=== PATIENT | male | born 1935 | race Caucasian/White ===

== ENCOUNTER 2021-06-14 11:52 | Emergency (ER) | payer BC ==
[2021-06-15 13:08] LABS: SARS-CoV-2 NAA Not Detected (Not Detected)
== END 2021-06-14 12:28 | disposition home or self-care (01) ==
LOC: JVIRT 11:52
DX: Z20.822 Contact with and (suspected) exposure to COVID-19 (principal)
CPT/HCPCS: C9803; Q3014-GT; U0003; U0005